=== PATIENT | female | born 1965 | race Caucasian/White ===

== ENCOUNTER → 2017-02-28 | Outpatient (REF) | payer BC, OTHER | LOC: M LAB REF 18:12 | DX: N39.0 Urinary tract infection, site not specified (principal) | CPT/HCPCS: 87186 ==

== ENCOUNTER → 2017-04-18 | Outpatient (CLI) | payer BC | LOC: M WHC 13:04 | DX: Z12.31 Encounter for screening mammogram for malignant neoplasm of breast (principal) | CPT/HCPCS: 77067 ==

== ENCOUNTER → 2018-09-03 | Outpatient (CLI) | payer BC ==
[~2018-09-03] MED LIST: ACET1TAB55 PO; AUGM875T28 PO; BACITAB PO; DOCU5LIQ PO; EFFE37.5 PO; FERR325T3 PO; FISH5CAP PO; IBUP80TA PO; MAPA500T17 PO; OXYC1TAB23 PO; VITA20008 PO
--- NOTE | 2018-09-03 16:36 | REPMRS ---
Patient History The patient states she had a clinical breast exam in 08/2018. No known family history of cancer. Took hormonal contraceptives for 10 years. 3D TOMOSYNTHESIS WAS PERFORMED. [facility] for breast cancer is 9.6%. Digital Woman Screen Mammo: September 03, 2018 - Exam #: [id number] Bilateral CC and MLO view(s) were taken. Technologist: Yaritza Mg, Technologist Prior study comparison: April 18, 2017, digital woman screen mammo performed at [facility]. February 07, 2016, digital woman screen mammo performed at [facility]. FINDINGS: The breast tissue is heterogeneously dense. This may lower the sensitivity of mammography. There has been no change in the appearance of the mammogram from the prior studies. There is a moderate amount of residual fibroglandular tissue which is fairly symmetric. There is no interval development of dominant mass, areas of architectural distortion, or clustered microcalcification typical of malignancy. Assessment: BI-RADS/ACR category 1 mammogram. Negative Mammogram. Recommendation Routine screening mammogram in 1 year (for women over age 40). This mammogram was interpreted with the aid of an FDA-approved computer-aided dectection system. Electronically Signed By: Francisco Rodríguez MD 09/03/18 [id number]
== END ==
LOC: M WHC 14:37
PROVIDERS: ATTEND Nurse Practitioner Family
DX: Z12.31 Encounter for screening mammogram for malignant neoplasm of breast (principal)

== ENCOUNTER → 2019-09-07 | Outpatient (CLI) | payer BC ==
--- NOTE | 2019-09-07 16:59 | REPMRS ---
Patient History The patient states she had a clinical breast exam in August 2019. No known family history of cancer. Took hormonal contraceptives for 10 years. 3D TOMOSYNTHESIS WAS PERFORMED. [facility] for [facility] 9.4%. BLAIR Su. Digital Woman Screen Mammo: September 07, 2019 - Exam #: [id number] Bilateral CC and MLO view(s) were taken. Technologist: Key Herrera, Technologist Prior study comparison: September 03, 2018, bilateral digital woman screen mammo performed at [facility]. April 18, 2017, digital woman screen mammo performed at [facility]. FINDINGS: The breast tissue is heterogeneously dense. This may lower the sensitivity of mammography. There has been no change in the appearance of the mammogram from the prior studies. There is a moderate amount of residual fibroglandular tissue which is fairly symmetric. There is no interval development of dominant mass, areas of architectural distortion, or clustered microcalcification typical of malignancy. Assessment: BI-RADS/ACR category 1 mammogram. Negative Mammogram. Recommendation Routine screening mammogram in 1 year (for women over age 40). This mammogram was interpreted with the aid of an FDA-approved computer-aided dectection system. Electronically Signed By: Francisco Rodríguez MD 09/07/19 [id number]
== END ==
LOC: M WHC 14:26
PROVIDERS: ATTEND Nurse Practitioner Family
DX: Z12.31 Encounter for screening mammogram for malignant neoplasm of breast (principal)

== ENCOUNTER → 2020-10-10 | Outpatient (CLI) | payer BC ==
--- NOTE | 2020-10-10 15:47 | REP ---
INDICATION: CRISTO SCR MAMMO Z12.31. COMPARISON: Multiple TECHNIQUE: Digital screening mammography was carried out bilaterally in the CC and MLO projections using both 2D and 3D modalities and compared to the prior exams. By history, the patient has no complaints of a palpable breast abnormality or other significant breast complaints. FINDINGS: The breasts are unchanged in size and shape. Once again, dense heterogenous somewhat nodular fibroglandular elements are seen bilaterally in a stable appearing pattern but to such a degree that the sensitivity of the mammogram in detecting cancer is decreased. There are no luke soft tissue densities or spiculated masses. There is no internal architectural distortion. There are no suspicious calcifications. There is no skin thickening or nipple retraction. The Volpara volumetric breast density pattern is C. IMPRESSION: BIRADS/ACR category 1 negative mammogram. Due to the patient's breast density score of C bilateral whole breast screening ultrasonography and or bilateral breast MRI is warranted. This patient's Tyrer-Cuzick lifetime breast cancer risk assessment score is unknown%. This mammogram was interpreted with the aid of an FDA-approved computer-aided detection system. The patient states she had a clinical breast exam in unknown. The patient letter being requested is M1. RECOMMENDATION: Repeat screening mammography recommended 1 year (for women over 40). <Electronically signed by Vamsi Weber > 10/10/20 [id number]
== END ==
LOC: M WHC 14:38
PROVIDERS: ATTEND Nurse Practitioner Women's Health
DX: Z12.31 Encounter for screening mammogram for malignant neoplasm of breast (principal)

== ENCOUNTER → 2020-12-23 | Outpatient (CLI) | payer BC, OTHER | LOC: M LABSMTC 11:13 | PROVIDERS: ATTEND Anesthesiology | DX: Z01.812 Encounter for preprocedural laboratory examination (principal); Z20.822 Contact with and (suspected) exposure to COVID-19 ==

== ENCOUNTER 2020-12-28 10:10 | Day surgery (SDC) | payer BC, OTHER ==
[~2020-12-28] VITALS: Ht 172.7 cm; Wt 65.0 kg
[~2020-12-28 10:10] MED LIST changes: +LIDOCAINE 2% 100MG/5ML SDV (FOR ANES.) As Ordered ONE; +NS 1,000 ML IV ONE; +propofoL 200 MG/20 ML VIAL As Ordered ONE
--- OUTSIDE RECORDS SUMMARY | 2020-12-28 10:13 | CCD | Continuity of Care Document ---
Author Author Brittney [facility] Organization Unknown Address [address] [place] [address], [address] [place] [address] Phone [phone] Care Team Providers Care Survey Field Technician Name Role Phone Elvia Cade AUTM Abdoulaye Kothari M.D. AUTM [phone] Problems Active Problems Provider Date Aftercare Following The Surgery Of Genitourinary System,NEC Ning Orellana MD Onset: 06/08/2012 Intramural leiomyoma of uterus Ning Orellana MD Onset: Social History Type Date Description Comments Sex Unknown ETOH Use 2 A Day Tobacco Use Start: Unknown End: Unknown Patient is a former smoker Allergies and adverse reactions Description No Known Drug Allergies Medications Active Medications SIG Qnty Indications Ordering Provide r Date Clenpiq 10-3.5-12mg-GM -GM/160ML S olution take as directed per doctor's bowel prep instructions. 320ml Z12.1 1 Cleve Larios MD 11/21/[address] take 4 tabs by mouth prior to procedure per instructions. 4tabs Z12.11 Cleve Larios MD 11/21/2020 Venlafaxine HCL 37.5mg Tablets Daily Unknown Fish Oil 1000mg Capsules 3 times per week Unknown Vitamin D-3 125mcg (5000 Ut) Table ts 3 times per week. Unknown Immunizations Description No Information Available Vital Signs Date Vital Result Comment 11/21/2020 1:19pm BP Systolic 118 mmHg BP Diastolic 84 mmHg Height 68 inches 5'8" Weight 147.00 lb BMI (Body Mass Index) 22.3 kg/m2 [place] Body Weight 140 lb Weight 66.679 kg BSA (Body Surface Area) 1.79 m2 06/08/2012 11:32am BP Systolic 118 mmHg BP Diastolic 76 mmHg Heart Rate 84 /min O2 % BldC Oximetry 97 % Respiratory Rate 16 /min Body Temperature 98.3 F Height 68 inches 5'8" Weight 136.00 lb BMI (Body Mass Index) 20.7 kg/m2 [place] Body Weight 140 lb Weight 61.690 kg BSA (Body Surface Area) 1.73 m2 Results Description No Information Available Procedures Date Code Description Status 11/21/2020 72562 Office/Outpatient New Moderate M DM 45-59 Minutes Completed Medical Devices Description No Information Available Encounters Type Date Location Provider Dx Diagnosis Office Visit 11/21/2020 1:00p [facility] ctice ELOY Carranza Z12.11 Encounter for screening for malignant neoplasm of colon K21.9 Gastro-esophageal reflux dis ease without esophagitis Assessments Date Code Description Provider 11/21/2020 Z12.11 Encounter for screening for haley gnant neoplasm of colon ELOY Carranza 11/21/2020 K21.9 Gastro-esophageal reflux disease without esophagitis ELOY Carranza Plan of Treatment 11/21/2020 - ELOY Carranza* Z12.11 Encounter for screening for malignant neoplasm of colon * K21.9 Gastro-esophageal reflux disease without esophagitis * * New Medication:* Clenpiq 10-3.5-12 mg-GM -GM/160ML * Dulcolax 5 mg * New Orders:* Colonoscopy, Ordered: 11/21/20 * Comments:* Will arrange for upper endoscopy and colonoscopy. Reviewed risks and benefits of the procedures, as well as other options, with the patient. Prep for this procedure was discussed with patient, including risks and side effects associated with the prep. Patient verbalized understanding of all of the above and is in agreement to proceed. Patient will seek medical attention for any acute changes. Will monitor. * Follow up:* As scheduled, sooner if needed. Functional Status Description No Information Available Mental Status Description No Information Available Referrals Refer to Reason for Referral Status Appt Date Celestino Humphreys M.D. COLO SCREEN Scheduled 11/21 [facility] [address], [address] [place] [address] [phone]
--- OUTSIDE RECORDS SUMMARY | 2020-12-28 10:13 | CCD | Continuity of Care Document ---
Author Author Brittney [facility] Organization Unknown Address [address] [place] [address], [address] [place] [address] Phone [phone] Care Team Providers Care Director Of Retail Name Role Phone Elvia Cade AUTM Abdoulaye Kothari M.D. AUTM [phone] Problems Active Problems Provider Date Aftercare Following The Surgery Of Genitourinary System,NEC Ning Orellana MD Onset: 06/08/2012 Intramural leiomyoma of uterus Ning Orellana MD Onset: Social History Type Date Description Comments Sex Unknown ETOH Use 2 A Day Tobacco Use Start: Unknown End: Unknown Patient is a former smoker Allergies, Adverse Reactions, Alerts Description No Known Drug Allergies Medications Active [...] m2 Results Description No Information Available Procedures Description No Information Available Medical Devices Description No Information Available Encounters Description No Information Available Assessments Date Code Description Provider 11/21/2020 Z12.11 [...] Celestino Humphreys M.D. COLO SCREEN Scheduled 11/21 [facility] [address], [address] [place] [address] [phone]
--- OUTSIDE RECORDS SUMMARY | 2020-12-28 10:14 | CCD ---
Author Author [facility] Organization [facility] Address Unknown Phone Unavailable Care Team Providers Care Resawyer Name Role Phone Alyssia Elvia Unavailable PROBLEMS Type Condition ICD9-CM Code INT17-SU Code Onset Dates Condition S tatus W/U Status Risk SNOMED Code Notes Problem Dyspareunia in female N94.10 Active confirmed 68946213 Problem Acquired absence of both cervix and uterus Z90.710 Active confirmed 528045902 Problem Symptomatic menopausal or female climacteric states N95.1 Active confirmed [id number] ALLERGIES No Known Allergies ENCOUNTERS from 1965 to 2020-10-11 Encounter Location Date Provider Diagnosis [facility] [address] [phone] [place] [address] 17 Sep, 2020 Elvia Cade Routine gynecologica l examination Z01.419 ; Hx of hysterectomy for benign disease Z90.710 ; Breast cancer screening by mammogram Z12.31 ; Menopausal and female climacteric states N95.1 ; Encounter for screening for malignant neoplasm of colon Z12.11 and Encounter for screening for malignant neoplasm of rectum Z12.12 IMMUNIZATIONS No Information SOCIAL HISTORY Sex Assigned At : Social History Observation Description Sex Assigned At Unknown Education: Question Answer Notes Level of Education: High School Rastafarian: Question Answer Notes Rastafarian 34 None Alcohol Screening: Question Answer Notes Did you have a drink containing alcohol in the past year? Ye s Points 2 Interpretation Negative How often did you have six or more drinks on one occas ion in the past year? Never (0 points) How many drinks did you have on a typica l day when you were drinking in the past year? 1 or 2 (0 points) How often did you have a drink containing alcohol in t he past year? Two to four times a month (2 points) REASON FOR REFERRAL from 1965 to 2020-10-11 Reason 55 year old female desires s creening colonoscopy, please evaluate and manage as necessary, thank you Diagnosis 1 Encounter for screening for malignant neoplasm of colon (Z12.11) Referral Organization [facility] Referring Provider First Name Elvia Referring Provider Last Name Alyssia Referring Provider Specialty OB - Gynecology Referred Provider Paulo Larios David Referral Priority Routine Clinical Notes Elvia Cade NP 4:57:55 PM > referral sent VITAL SIGNS Weight 146.8 lbs Sep, Height 68 in Sep, BMI 22.32 kg/m2 Sep, Blood pressure systolic 118 mm Hg Sep, Blood pressure diastolic 84 mm Hg Sep, MEDICATIONS Medication SIG (Take, Route, Frequency, Duration) Notes Start Da te End Date Status Vitamin D 2000 UNIT 1 tablet Orally Once a day Active Fish Oil 1000 MG 1 capsule Orally Once a day Active Ibuprofen 200 mg 1 tablet Orally Every 4 hours as needed MDD 2400 mg Active Effexor XR 37.5 MG 1 capsule with food Orally daily for 90 days Active PROCEDURES No Information RESULTS Component Value Reference Range WWBC DIGITAL / RAPHAEL BILATERAL MAMMO SCRE ENING (Ultrasound if indicated) Reviewed date:10/10/2020 17:33:12 Interpretation:Negative Performing Lab:[facility],[address]], ,[place] [id number] REASON FOR VISIT ANNUAL/MAMMO MEDICAL (GENERAL) HISTORY Type Description Date Medical History GERD Medical History Lower abdominal pain - resolved with hys terectomy Medical History vertigo past Surgical History ectopic Surgical History lasik bilaterally Surgical History urethral diverticulum Dr Fritz [facility]rology 2009 Surgical History hysterectomy lap assisted, s till has ovaries/tubes for 7.5 cm fibroid 04/2012 Goals Section No Information Health Concerns No Information MEDICAL EQUIPMENT No Information MENTAL STATUS No Information FUNCTIONAL STATUS No Information ASSESSMENTS Encounter Date Diagnosis Assessment Notes Treatment Notes Treatm ent Clinical Notes Sep, Routine gynecological examination (ICD-10 - Z01. 419) Sep, Hx of hysterectomy for benign disease (ICD-10 - Z90.710) Sep, Breast cancer screening by mammogram (ICD-10 - Z 12.31) Reviewed screening intervals with mammography, recommend annual screening until age 75. Reviewed breast awareness, know what is normal for you so that you can detect any changes in the breasts, check breasts regularly, in a routine that you are comfortable with. Sep, Menopausal and female climacteric states (ICD-10 - N95.1) rx sent Sep, Encounter for screening for malignant neoplasm of colon (ICD-10 - Z12.11) Sep, Encounter for screening for malignant neoplasm of rectum (ICD-10 - Z12.12) PLAN OF TREATMENT Medication Medication Name Sig Start Date Stop Date Effexor XR 37.5 MG 1 capsule with food Orally daily for 90 days Treatment Notes Assessment Notes Clinical Notes Breast cancer screening by mammogram Rev iewed screening intervals with mammography, recommend annual screening until age 75. Reviewed breast awareness, know what is normal for you so that you can detect any changes in the breasts, check breasts regularly, in a routine that you are comfortable with. Menopausal and female climacteric states rx sent Referrals Referral Date Details 55 year old female desires s creening colonoscopy, please evaluate and manage as necessary, thank you, Cleve Larios Next Appt Details 1 Year Reason:annual/mammo Follow Up:1 Yearannual/mammo Insurance Providers Payer Name Payer Address Payer Phone Insured Name Patient Relati onship to Insured Coverage Start Date Coverage End Date [facility] [address] [facility] [id number] [place] [employer]
--- OUTSIDE RECORDS SUMMARY | 2020-12-28 10:14 | CCD ---
Author Author [facility] Organization [facility] Address Unknown Phone Unavailable Care Team Providers Care Pet Adoption Counselor Name Role Phone Charlebois, A Gretta RPA C Unavailable Unavailable Charlebois, A Gretta RPA C Unavailable Unavailable Charlebois, A Gretta RPA C Unavailable Unavailable Charlebois, A Gretta RPA C Unavailable Unavailable Charlebois, A Gretta RPA C Unavailable Unavailable Charlebois, A Gretta RPA C Unavailable Unavailable Charlebois, A Gretta RPA C Unavailable Unavailable Charlebois, A Gretta RPA C Unavailable Unavailable Charlebois, A Gretta RPA C Unavailable Unavailable Charlebois, A Gretta RPA C Unavailable Unavailable Charlebois, A Gretta RPA C Unavailable Unavailable Charlebois, A Gretta RPA C Unavailable Unavailable Charlebois, A Gretta RPA C Unavailable Unavailable Charlebois, A Gretta RPA C Unavailable Unavailable Charlebois, A Gretta RPA C Unavailable Unavailable Charlebois, A Gretta RPA C Unavailable Unavailable Charlebois, A Gretta RPA C Unavailable Unavailable Charlebois, A Gretta RPA C Unavailable Unavailable Charlebois, A Gretta RPA C Unavailable Unavailable Charlebois, A Gretta RPA C Unavailable Unavailable Charlebois, A Gretta RPA C Unavailable Unavailable Charlebois, A Gretta RPA C Unavailable Unavailable Charlebois, A Gretta RPA C Unavailable Unavailable Charlebois, A Gretta RPA C Unavailable Unavailable Charlebois, A Gretta RPA C Unavailable Unavailable Charlebois, A Gretta RPA C Unavailable Unavailable Charlebois, A Gretta RPA C Unavailable Unavailable Charlebois, A Gretta RPA C Unavailable Unavailable Charlebois, A Gretta RPA C Unavailable Unavailable Charlebois, A Gretta RPA C Unavailable Unavailable Charlebois, A Gretta RPA C Unavailable Unavailable Charlebois, A Gretta RPA C Unavailable Unavailable Charlebois, A Gretta RPA C Unavailable Unavailable Dotson, [place] Sabine Unavailable Unavailable Dotson, [place] Sabine Unavailable Unavailable Dotson, [place] Sabine Unavailable Unavailable Dotson, [place] Sabine Unavailable Unavailable Dotson, [place] Sabine Unavailable Unavailable Dotson, [place] Sabine Unavailable Unavailable Dotson, [place] Sabine Unavailable Unavailable Dotson, [place] Sabine Unavailable Unavailable Dotson, [place] Sabine Unavailable Unavailable Dotson, [place] Sabine Unavailable Unavailable Dotson, [place] Sabine Unavailable Unavailable Dotson, [place] Sabine Unavailable Unavailable Dotson, [place] Sabine Unavailable Unavailable Re-disclosure Warning The records that you are about to access may contain information from federally-assisted alcohol or drug abuse programs. If such information is present, then the following federally mandated warning applies: This information has been disclosed to you from records protected by federal confidentiality rules (42 CFR part 2). The federal rules prohibit you from making any further disclosure of this information unless further disclosure is expressly permitted by the written consent of the person to whom it pertains or as otherwise permitted by 42 CFR part 2. A general authorization for the release of medical or other information is NOT sufficient for this purpose. The Federal rules restrict any use of the information to criminally investigate or prosecute any alcohol or drug abuse patient.The records that you are about to access may contain highly sensitive health information, the redisclosure of which is protected by Article 27-F of the [facility] Public Health law. If you continue you may have access to information: Regarding HIV / AIDS; Provided by facilities licensed or operated by the [facility] Office of Mental Health; or Provided by the [facility] Office for People With Developmental Disabilities. If such information is present, then the following [facility] mandated warning applies: This information has been disclosed to you from confidential records which are protected by state law. State law prohibits you from making any further disclosure of this information without the specific written consent of the person to whom it pertains, or as otherwise permitted by law. Any unauthorized further disclosure in violation of state law may result in a fine or mcc sentence or both. A general authorization for the release of medical or other information is NOT sufficient authorization for further disc losure. Allergies and Adverse Reactions Type Description Substance Reaction Status Data Source(s ) Allergy to substance Allergy to substance Allergy to substance MAX ([facility]) Allergy to substance Allergy to substance Allergy to substance [place] ([facility]) Family History Family Member Name Family Member Gender Family Member Status Date o f Status Description Data Source(s) Unknown Unknown Problem MEDENT ([facility], [facility]) brother Encounters Encounter Providers Location Date Indications Data Source(s ) Outpatient Attender: Gretta Sparks/Elio/Talita chun/Ric 11/21/2020 01:00:00 PM EDT MEDENT ([facility] arlene, ) Outpatient [address] [facility] [address] 10/10/2020 12:00:00 AM EDT eCW1 ([facility]) SASHA AlanC: [address] [place] [address], Ph. Attender: Sabine Dotson [facility] Medical 05/24/2020 12:00:00 AM EDT MAX ([facility]) NETTA Alan: [address] [place] [address], Ph. Attender: Sabine Dotson [facility] Medical 04/26/2020 12:00:00 AM EST MAX ([facility]) SASHA AlanC: [address] [place] [address], Ph. Attender: Sabine HERNANDEZ - [facility] Medical 04/26/2020 12:00:00 AM EST MAX ([facility]) Unknown [address] [facility] [address] [address] 12/21/2019 12:00:00 AM EDT eCW1 ([facility]) Immunizations Vaccine Date Status Description Data Source(s) COVID-19, mRNA, LNP-S, PF, 100 mcg/0.5 mL dose 05/24/2020 01 :20:07 PM EDT completed .5 mL MAX ([facility]) COVID-19 VACCINE Moderna 05/24/2020 12:00:00 AM EDT completed [place] Vaccine Series Complete: YESThis Data wa s Submitted to [facility] Via [facility]. COVID-19, mRNA, LNP-S, PF, 100 mcg/0.5 mL dose 04/26/2020 02 :37:49 PM EST completed 10.5 mL MAX ([facility]) COVID-19, mRNA, LNP-S, PF, 100 mcg/0.5 mL dose 04/26/2020 02 :37:49 PM EST completed .5 mL MAX ([facility]) COVID-19 VACCINE Moderna 04/26/2020 12:00:00 AM EST completed [place] Vaccine Series Complete: NOThis Data was Submitted to [facility] Via [facility]. Medications Medication Brand Name Start Date Product Form Dose Route Admi nistrative Instructions Pharmacy Instructions Status Indications Reaction Description Data Source(s) Citric Acid 75 MG/ML / Magnesium Oxide 2 1.9 MG/ML / picosulfate sodium 0.0625 MG/ML Oral Solution [Clenpiq] 10 mg-3.5 gram -12 gram/160 mL SOD PICOSULF/MAG OX/CITRIC AC 11/22/2020 12:00:00 AM EDT solution 320 T LALI DIRECTED PER DOCTOR'S BOWEL PREP INSTRUCTIONS TAKE DIRECTED PER DOCTOR'S BOWEL PREP INSTRUCTIONS SOLD: 12/10/2020 [facility] Bisacodyl 5 MG Delayed Release Oral Tablet [Dulcolax] Dulcol ax 11/21/2020 12:00:00 AM EDT ORAL active M EDENT ([facility], ) Clenpiq Clenpiq 11/21/2020 12:00:00 AM EDT active MEDENT ([facility], ) 37.5 mg 10/11/2020 12:00:00 AM EDT capsule,extended releas e 24hr 90 TAKE ONE CAPSULE BY MOUTH EVERY DAY WITH FOOD TAKE ONE CAPSULE BY MOUTH EVERY DAY WITH FOOD SOLD: 10/21/2020 [facility] 37.5 mg 12/21/2019 12:00:00 AM EDT capsule,extended releas e 24hr 90 TAKE ONE CAPSULE BY MOUTH EVERY DAY WITH FOOD TAKE ONE CAPSULE BY MOUTH EVERY DAY WITH FOOD SOLD: 07/14/2020 [facility] 37.5 mg 12/21/2019 12:00:00 AM EDT capsule,extended releas e 24hr 90 TAKE ONE CAPSULE BY MOUTH EVERY DAY WITH FOOD TAKE ONE CAPSULE BY MOUTH EVERY DAY WITH FOOD SOLD: 03/31/2020 [facility] 37.5 mg 12/21/2019 12:00:00 AM EDT capsule,extended releas e 24hr 90 TAKE ONE CAPSULE BY MOUTH EVERY DAY WITH FOOD TAKE ONE CAPSULE BY MOUTH EVERY DAY WITH FOOD SOLD: 12/21/2019 [facility] 37.5 mg 10/06/2019 12:00:00 AM EDT capsule,extended releas e 24hr 30 TAKE ONE CAPSULE BY MOUTH EVERY DAY TAKE ONE CAPSULE BY MOUTH EVERY DAY SOLD: 11/15/2019 [facility] Insurance Providers Payer name Policy type / Coverage type Policy ID Covered republican ID Covered republican's relationship to cook Policy Cook Plan Information [facility] [id number] [facility] [id number] [facility] [id number] P [id number] ANSI-Commercial [id number] [facility] Commercial [id number] Family Dependent [id number] ANSI-Commercial [id number] [facility] Commercial [id number] Family Dependent [id number] [facility] Commercial [id number] Family Dependent [id number] [facility] [id number] [facility] [id number] [facility]-O/P [id number] 01 [id number] [facility] [id number] [facility] [id number] Problems, Conditions, and Diagnoses No Information Surgeries/Procedures Procedure Description Date Indications Data Source(s) OFFICE OUTPATIENT NEW 45 MINUTES 11/21/2020 12:00:00 A M EDT [facility] ([facility]) Results ID Date Data Source WWBC DIGITAL / RAPHAEL BILATERAL MAMMO SCREENING (Ultraso und if indicated) 10/10/2020 12:00:00 AM EDT [facility] ([facility]) Name Value Range Interpretation Code Description Data Silvia rce(s) Supporting Document(s) WWBC DIGITAL / RAPHAEL BILAT ERAL MAMMO SCREENING (Ultrasound if indicated) [facility] ([facility]) Procedure Social History No Information Vital Signs ID Date Data Source UNK Name Value Range Interpretation Code Description Data Source(s) Diastolic blood pressure 84 mm[Hg] 84 mm[Hg] [facility] ([facility]) Body height 68 [in_i] 68 [in_i] [facility] ([facility]) 5'8" Systolic blood pressure 118 mm[Hg] 118 mm[Hg] [facility] ([facility]) Body weight 147.00 [lb_av] 147.00 [lb_av] [facility] ([facility]) Body mass index (BMI) [Ratio] 22.3 kg/m2 22.3 k g/m2 [facility] ([facility]) Patten body weight 140 [lb_av] 140 [lb_av] [facility] ([facility]) Body weight 66.679 kg 66.679 kg [facility] ([facility], ) Body surface area Derived from formula 1.[address], ) Body weight 146.8 [lb_av] 146.8 [lb_av] eCW1 (formerly [facility]) Body height 68 [in_i] 68 [in_i] eCW1 ([facility]) Body mass index (BMI) [Ratio] 22.32 kg/m2 22.32 kg/m2 [facility] ([facility]) Systolic blood pressure 118 mm[Hg] 118 mm[Hg] e CW1 ([facility]) Diastolic blood pressure 84 mm[Hg] 84 mm[Hg] eCW1 ([facility])
--- OUTSIDE RECORDS SUMMARY | 2020-12-28 10:14 | CCD | Continuity of Care Document ---
Author Author Brittney [facility] Organization Unknown Address [address] [place] [address], [address] [place] [address] Phone [phone] Care Team Providers Care Director Of Reservations Name Role Phone Elvia Cade AUTM [phone] Abdoulaye Kothari M.D. AUTM [phone] Problems Active Problems Provider Date Aftercare Following [...] lb BMI (Body Mass Index) 22.3 kg/m2 [place] Body Weight 140 lb Weight 66.679 kg BSA (Body Surface Area) 1.79 m2 06/08/2012 11:32am BP Systolic 118 mmHg BP Diastolic 76 mmHg Heart Rate 84 /min O2 % BldC Oximetry 97 % Respiratory Rate 16 /min Body Temperature 98.3 F Height 68 inches 5'8" Weight 136.00 lb BMI (Body Mass Index) 20.7 kg/m2 [place] Body Weight 140 lb Weight 61.690 kg [...] Celestino Humphreys M.D. COLO SCREEN Scheduled 11/21 [facility] [address], [address] [place] [address] [phone]
--- OUTSIDE RECORDS SUMMARY | 2020-12-28 10:14 | CCD | Continuity of Care Document ---
Author Author Brittney [facility] Organization Unknown Address [address] [place] [address], [address] [place] [address] Phone [phone] Care Team Providers Care Open Hearth Laborer Name Role Phone Elvia Cade AUTM [phone] Abdoulaye Kothari M.D. AUTM [phone] Problems Active Problems Provider Date Aftercare Following [...] lb BMI (Body Mass Index) 22.3 kg/m2 [place] Body Weight 140 lb Weight 66.679 kg BSA (Body Surface Area) 1.79 m2 06/08/2012 11:32am BP Systolic 118 mmHg BP Diastolic 76 mmHg Heart Rate 84 /min O2 % BldC Oximetry 97 % Respiratory Rate 16 /min Body Temperature 98.3 F Height 68 inches 5'8" Weight 136.00 lb BMI (Body Mass Index) 20.7 kg/m2 [place] Body Weight 140 lb Weight 61.690 kg BSA (Body Surface Area) 1.73 m2 Results Description No Information Available Procedures Description No Information Available Medical Devices Description No Information Available Encounters Description No Information Available Assessments Date Code Description Provider 11/21/2020 Z12.11 Encounter for screening for haley gnant neoplasm of colon ELOY Carranza 11/21/2020 K21.9 Gastro-esophageal reflux disease without esophagitis EOLY Carranza Plan of Treatment 11/21/2020 - ELOY [...] Celestino Humphreys M.D. COLO SCREEN Scheduled 11/21 [facility] [address], [address] [place] [address] [phone]
--- NOTE | 2020-12-28 12:23 | ROOR ---
Patient Name: Brittney Garcia Procedure Date: 12/28/2020 11:44 AM Date of : 1965 Age: 55 Room: [facility] Gender: Female Note Status: Finalized Procedure: Upper GI endoscopy Indications: Heartburn, Suspected gastro-esophageal reflux disease Providers: Celestino Humphreys MD Referring MD: ELIGIO MALLORY MD Requesting Provider: Medicines: Monitored Anesthesia Care Complications: No immediate complications. Procedure: Pre-Anesthesia Assessment: - Prior to the procedure, a History and Physical was performed, and patient medications and allergies were reviewed. The patient is competent. The risks and benefits of the procedure and the sedation options and risks were discussed with the patient. All questions were answered and informed consent was obtained. Patient identification and proposed procedure were verified by the physician, the nurse and the anesthesiologist in the procedure room. Mental Status Examination: alert and oriented. Airway Examination: normal oropharyngeal airway and neck mobility. Respiratory Examination: clear to auscultation. CV Examination: normal. Prophylactic Antibiotics: The patient does not require prophylactic antibiotics. Prior Anticoagulants: The patient has taken no previous anticoagulant or antiplatelet agents. ASA Grade Assessment: II - A patient with mild systemic disease. After reviewing the risks and benefits, the patient was deemed in satisfactory condition to undergo the procedure. The anesthesia plan was to use monitored anesthesia care (MAC). Immediately prior to administration of medications, the patient was re-assessed for adequacy to receive sedatives. The heart rate, respiratory rate, oxygen saturations, blood pressure, adequacy of pulmonary ventilation, and response to care were monitored throughout the procedure. The physical status of the patient was re-assessed after the procedure. The Endoscope was introduced through the mouth, and advanced to the second part of duodenum. The upper GI endoscopy was accomplished without difficulty. The patient tolerated the procedure well. Findings: LA Grade A (one or more mucosal breaks less than 5 mm, not extending between tops of 2 mucosal folds) esophagitis with no bleeding was found in the distal esophagus. Biopsies were taken with a cold forceps for histology. Verification of patient identification for the specimen was done by the physician and nurse using the patient's name, date and medical record number. Estimated blood loss was minimal. Scattered mild inflammation characterized by erythema and granularity was found in the gastric antrum. Biopsies were taken with a cold forceps for Helicobacter pylori testing. The duodenal bulb and second portion of the duodenum were normal. Impression: - LA Grade A reflux esophagitis. Biopsied. - Gastritis. Biopsied. - Normal duodenal bulb and second portion of the duodenum. Recommendation: - Patient has a contact number available for emergencies. The signs and symptoms of potential delayed complications were discussed with the patient. Return to normal activities tomorrow. Written discharge instructions were provided to the patient. - High fiber diet. - Continue present medications. - Follow an antireflux regimen. - Await pathology results. - Telephone GI clinic for pathology results in 2 weeks. - Return to GI clinic if persistent symptoms or new symptoms. - Return to primary care physician. Procedure Code(s): --- Professional --- 27960, Esophagogastroduodenoscopy, flexible, transoral; with biopsy, single or multiple Diagnosis Code(s): --- Professional --- K21.0, Gastro-esophageal reflux disease with esophagitis K29.70, Gastritis, unspecified, without bleeding R12, Heartburn CPT copyright 2019 [employer]. All rights reserved. The codes documented in this report are preliminary and upon wire bound box machine helper review may be revised to meet current compliance requirements. Celestino Humphreys MD Celestino Humphreys MD 12/28/2020 12:23:16 PM Electronically signed by Celestino Humphreys MD Number of Addenda: 0 Note Initiated On: 12/28/2020 11:44 AM Estimated Blood Loss: Estimated blood loss was minimal.
--- NOTE | 2020-12-28 12:25 | ROOR ---
Patient Name: Brittney Garcia Procedure Date: 12/28/2020 11:44 AM Date of : 1965 Age: 55 Room: [facility] Gender: Female Note Status: Finalized Procedure: Colonoscopy Indications: Screening for colorectal malignant neoplasm Providers: Celestino Humphreys MD Referring MD: ELIGIO MALLORY MD Requesting Provider: Medicines: Monitored Anesthesia Care Complications: No immediate complications. Procedure: Pre-Anesthesia Assessment: - Prior to the procedure, a History and Physical was performed, and patient medications and allergies were reviewed. The patient is competent. The risks and benefits of the procedure and the sedation options and risks were discussed with the patient. All questions were answered and informed consent was obtained. Patient identification and proposed procedure were verified by the physician, the nurse and the anesthesiologist in the procedure room. Mental Status Examination: alert and oriented. Airway Examination: normal oropharyngeal airway and neck mobility. Respiratory Examination: clear to auscultation. CV Examination: normal. Prophylactic Antibiotics: The patient does not require prophylactic antibiotics. Prior Anticoagulants: The patient has taken no previous anticoagulant or antiplatelet agents. ASA Grade Assessment: II - A patient with mild systemic disease. After reviewing the risks and benefits, the patient was deemed in satisfactory condition to undergo the procedure. The anesthesia plan was to use monitored anesthesia care (MAC). Immediately prior to administration of medications, the patient was re-assessed for adequacy to receive sedatives. The heart rate, respiratory rate, oxygen saturations, blood pressure, adequacy of pulmonary ventilation, and response to care were monitored throughout the procedure. The physical status of the patient was re-assessed after the procedure. The Colonoscope was introduced through the anus and advanced to the terminal ileum, with identification of the appendiceal orifice and IC valve. The colonoscopy was performed without difficulty. The patient tolerated the procedure well. The quality of the bowel preparation was good. The terminal ileum, ileocecal valve, appendiceal orifice, and rectum were photographed. Scope insertion time was 2 minutes. Scope withdrawal time was 8 minutes. The total duration of the procedure was 12 minutes. Findings: The perianal and digital rectal examinations were normal. The terminal ileum appeared normal. Two sessile polyps were found in the rectum. The polyps were diminutive in size. These polyps were removed with a cold biopsy forceps. Resection and retrieval were complete. Verification of patient identification for the specimen was done by the physician and nurse using the patient's name, date and medical record number. Estimated blood loss was minimal. Non-bleeding external and internal hemorrhoids were found during retroflexion. The hemorrhoids were medium-sized. Impression: - The examined portion of the ileum was normal. - Two diminutive polyps in the rectum, removed with a cold biopsy forceps. Resected and retrieved. - Non-bleeding external and internal hemorrhoids. Recommendation: - Patient has a contact number available for emergencies. The signs and symptoms of potential delayed complications were discussed with the patient. Return to normal activities tomorrow. Written discharge instructions were provided to the patient. - High fiber diet. - Continue present medications. - Await pathology results. - Repeat colonoscopy in 10 years for surveillance based on pathology results. - Return to GI clinic if persistent symptoms or new symptoms. - Return to primary care physician. Procedure Code(s): --- Professional --- 88731, Colonoscopy, flexible; with biopsy, single or multiple Diagnosis Code(s): --- Professional --- Z12.11, Encounter for screening for malignant neoplasm of colon K64.8, Other hemorrhoids K62.1, Rectal polyp CPT copyright 2019 [employer]. All rights reserved. The codes documented in this report are preliminary and upon surveillance manager review may be revised to meet current compliance requirements. Celestino Humphreys MD Celestino Humphreys MD 12/28/2020 12:25:36 PM Electronically signed by Celestino Humphreys MD Number of Addenda: 0 Note Initiated On: 12/28/2020 11:44 AM Estimated Blood Loss: Estimated blood loss was minimal.
[2020-12-28 12:45] VITALS: BP 131/88
== END 2020-12-28 12:57 | disposition home or self-care (01) ==
LOC: M OPP 10:10
PROVIDERS: ATTEND Internal Medicine Gastroenterology
DX: Z12.11 Encounter for screening for malignant neoplasm of colon (principal); K63.5 Polyp of colon; K64.8 Other hemorrhoids; K21.00 Gastro-esophageal reflux disease with esophagitis, without bleeding; K29.70 Gastritis, unspecified, without bleeding; R12 Heartburn; Z79.899 Other long term (current) drug therapy

== ENCOUNTER → 2021-10-03 | Outpatient (CLI) | payer BC, OTHER ==
[~2021-10-03] MED LIST changes: -LIDOCAINE 2% 100MG/5ML SDV (FOR ANES.) As Ordered ONE; -NS 1,000 ML IV ONE; -propofoL 200 MG/20 ML VIAL As Ordered ONE
[2021-10-03 12:02] LABS: HEMATOCRIT 38.7 % (36.0-47.0); HEMOGLOBIN 13.4 g/dl (12.0-15.5); MEAN CORPUSCULAR HEMOGLOBIN 31.2 pg (27.0-33.0); MEAN CORPUSCULAR HGB CONC 34.6 g/dl (32.0-36.5); MEAN CORPUSCULAR VOLUME 90.2 fl (80.0-96.0); PLATELET COUNT, AUTOMATED 225 10^3/uL (150-450); RED BLOOD COUNT 4.29 10^6/uL (4.00-5.40); WHITE BLOOD COUNT 3.9 10^3/uL (4.0-10.0)
[2021-10-03 13:14] LABS: ALBUMIN 3.8 GM/DL (3.2-5.2); ALT/SGPT 32 U/L (12-78); BILIRUBIN,TOTAL 0.7 MG/DL (0.2-1.0); BLOOD UREA NITROGEN 10 MG/DL (7-18); CALCIUM LEVEL 9.1 MG/DL (8.5-10.1); CARBON DIOXIDE LEVEL 27 MEQ/L (21-32); CHLORIDE LEVEL 104 MEQ/L (98-107); CHOLESTEROL LEVEL 276 MG/DL (<200); CHOLESTEROL RISK RATIO 3.136 (<5); CREATININE FOR GFR 0.75 MG/DL (0.55-1.30); GLOMERULAR FILTRATION RATE > 60.0 (>51); GLUCOSE, FASTING 105 MG/DL (70-100); HDL CHOLESTEROL 88 MG/DL (>40); LDL CHOLESTEROL 152 MG/DL (<100); NON-HDL-C 188 MG/DL; POTASSIUM SERUM 4.1 MEQ/L (3.5-5.1); SODIUM LEVEL 137 MEQ/L (136-145); TOTAL PROTEIN 7.4 GM/DL (6.4-8.2); TRIGLYCERIDES LEVEL 179 MG/DL (<150)
[2021-10-03 13:35] LABS: TOTAL 25(OH) VITAMIN D 33.6 NG/ML (30.0-100.0)
[2021-10-03 17:01] LABS: HEMOGLOBIN A1c 5.2 %
== END ==
LOC: M RAD 10:27
PROVIDERS: ATTEND Family Medicine
DX: D64.9 Anemia, unspecified (principal); R53.83 Other fatigue; M54.30 Sciatica, unspecified side; E03.9 Hypothyroidism, unspecified; R94.31 Abnormal electrocardiogram [ECG] [EKG]

== ENCOUNTER → 2022-02-20 | Outpatient (CLI) | payer BC, OTHER | LOC: M WHC 10:10 | PROVIDERS: ATTEND Nurse Practitioner Family | DX: Z12.31 Encounter for screening mammogram for malignant neoplasm of breast (principal) ==

== ENCOUNTER → 2022-07-30 | Outpatient (CLI) | payer BC, OTHER ==
[2022-07-30 09:32] LABS: HEMATOCRIT 39.2 % (36.0-47.0); HEMOGLOBIN 13.3 g/dl (12.0-15.5); MEAN CORPUSCULAR HEMOGLOBIN 30.6 pg (27.0-33.0); MEAN CORPUSCULAR HGB CONC 33.9 g/dl (32.0-36.5); MEAN CORPUSCULAR VOLUME 90.3 fl (80.0-96.0); PLATELET COUNT, AUTOMATED 219 10^3/uL (150-450); RED BLOOD COUNT 4.34 10^6/uL (4.00-5.40)
[2022-07-30 09:58] LABS: ALBUMIN 3.9 G/DL (3.2-5.2); ALKALINE PHOSPHATASE 77 U/L (46-116); ALT/SGPT 18 U/L (7.0-40); AST/SGOT 16 U/L (<34); BILIRUBIN,TOTAL 0.7 MG/DL (0.3-1.2); BLOOD UREA NITROGEN 14 MG/DL (9-23); CALCIUM LEVEL 9.1 MG/DL (8.5-10.1); CARBON DIOXIDE LEVEL 29 MMOL/L (20-31); CHLORIDE LEVEL 105 MMOL/L (98-107); CHOLESTEROL LEVEL 252 MG/DL (<200); CHOLESTEROL RISK RATIO 2.87 (<5); CREATININE FOR GFR 0.81 MG/DL (0.55-1.30); GLOMERULAR FILTRATION RATE > 60.0 (>51); GLUCOSE, FASTING 107 MG/DL (60-100); HDL CHOLESTEROL 87.6 MG/DL (>40); LDL CHOLESTEROL 129.4 MG/DL (<100); NON-HDL-C 164.4 MG/DL; POTASSIUM SERUM 4.1 MMOL/L (3.5-5.1); SODIUM LEVEL 137 MMOL/L (136-145); TOTAL PROTEIN 6.9 G/DL (5.7-8.2); TRIGLYCERIDES LEVEL 175 MG/DL (<150)
[2022-07-30 09:59] LABS: THYROID STIMULATING HORMONE 2.163 uIU/ML (0.55-4.78); THYROXINE (T4) 7.3 UG/DL (4.5-10.9); TOTAL T3 92.5 NG/DL (60.0-181.0)
[2022-07-30 10:17] LABS: HEMOGLOBIN A1c 5.2 % (4.0-6.0)
== END ==
LOC: M LAB 08:52
PROVIDERS: ATTEND Family Medicine
DX: D64.9 Anemia, unspecified (principal); R53.83 Other fatigue; E03.9 Hypothyroidism, unspecified

== ENCOUNTER → 2022-08-21 | Outpatient (CLI) | payer BC, OTHER ==
[~2022-08-21] MED LIST changes: +APPL300T4 PO; +ERGO500029; +OMEP-173; +OXYC1TAB23; +TRIA37.5
== END ==
LOC: M CARPUL 13:05
PROVIDERS: ATTEND Podiatrist
DX: M20.12 Hallux valgus (acquired), left foot (principal); M79.672 Pain in left foot

== ENCOUNTER 2022-08-30 06:03 | Day surgery (SDC) | payer BC, OTHER ==
[~2022-08-30] VITALS: Ht 172.7 cm; Wt 67.6 kg
[2022-08-30] MEDS ORDERED: ceFAZolin SOD 2 GM in IV 1 EA IV ONE (06:45)
[2022-08-30] MEDS ORDERED: LR 1,000 ML IV SCH (06:45)
[2022-08-30] MEDS ORDERED: LIDOCAINE 2% 100MG/5ML SDV (FOR ANES.) As Ordered ONE (06:52)
[2022-08-30] MEDS ORDERED: ONDANSETRON 4MG 2ML VIAL As Ordered ONE (06:52)
[2022-08-30] MEDS ORDERED: propofoL 200 MG/20 ML VIAL As Ordered ONE ×3 (06:52→08:55)
[2022-08-30] MEDS ORDERED: KETOROLAC 60MG 2ML VIAL As Ordered ONE (06:52)
[2022-08-30] MEDS ORDERED: fentaNYL 100 MCG/2 ML INJECTION As Ordered ONE (06:58)
[2022-08-30] MEDS ORDERED: MIDAZOLAM INJ 2MG/2ML VIAL As Ordered ONE (06:59)
[2022-08-30] MEDS ORDERED: LIDOCAINE 2% MDV 20ML VIAL As Ordered ONE (07:10)
[2022-08-30] MEDS ORDERED: ACETAMINOPHEN 1000MG 100ML IV BAG As Ordered ONE (07:48)
[2022-08-30 11:30] VITALS: BP 132/90; TEMP 97.4; O2SAT 95
== END 2022-08-30 11:30 | disposition home or self-care (01) ==
LOC: M SDC 06:03
PROVIDERS: ATTEND Podiatrist
DX: M20.12 Hallux valgus (acquired), left foot (principal); K21.9 Gastro-esophageal reflux disease without esophagitis; M54.9 Dorsalgia, unspecified; H81.10 Benign paroxysmal vertigo, unspecified ear; F41.9 Anxiety disorder, unspecified; Z79.899 Other long term (current) drug therapy
CPT/HCPCS: 28297; 73630; 76000; 88300; C1713; J0131; J0665; J0690; J1100; J1885; J2250; J2405; J3010

== ENCOUNTER → 2023-05-19 | Outpatient (CLI) | payer BC ==
[~2023-05-19] MED LIST changes: -EFFE37.5 PO; +EFFE37.52 PO; +PROBCAP14 PO
[2023-05-19 11:02] LABS: BASO # 0.1 10^3/uL (0.0-0.2); BASO % 1.1 % (0.0-1.0); EOS # 0.1 10^3/uL (0.0-0.5); EOS % 2.1 % (0.0-3.0); HEMOGLOBIN 13.7 g/dl (12.0-15.5); LYMPH # 1.6 10^3/uL (1.5-5.0); LYMPH % 33.5 % (24.0-44.0); MEAN CORPUSCULAR HEMOGLOBIN 31.3 pg (27.0-33.0); MEAN CORPUSCULAR HGB CONC 34.3 g/dl (32.0-36.5); MEAN CORPUSCULAR VOLUME 91.3 fl (80.0-96.0); MONO # 0.4 10^3/uL (0.0-0.8); MONO % 8.7 % (2.0-8.0); NEUTROPHILS # 2.6 10^3/uL (1.5-8.5); NEUTROPHILS % 54.4 % (36.0-66.0); PLATELET COUNT, AUTOMATED 258 10^3/uL (150-450); RED BLOOD COUNT 4.38 10^6/uL (4.00-5.40); WHITE BLOOD COUNT 4.7 10^3/uL (4.0-10.0)
[2023-05-19 11:25] LABS: BLOOD UREA NITROGEN 13 MG/DL (9-23); CALCIUM LEVEL 9.4 MG/DL (8.5-10.1); CARBON DIOXIDE LEVEL 28 MMOL/L (20-31); CHLORIDE LEVEL 107 MMOL/L (98-107); CREATININE FOR GFR 0.78 MG/DL (0.55-1.30); GLOMERULAR FILTRATION RATE > 60.0 (>51); GLUCOSE, FASTING 104 MG/DL (60-100); POTASSIUM SERUM 4.3 MMOL/L (3.5-5.1); SODIUM LEVEL 136 MMOL/L (136-145)
== END ==
LOC: M LAB 09:55
PROVIDERS: ATTEND Podiatrist
DX: M20.11 Hallux valgus (acquired), right foot (principal); M79.671 Pain in right foot

== ENCOUNTER 2023-05-23 06:21 | Day surgery (SDC) | payer BC ==
[~2023-05-23] VITALS: Ht 172.7 cm; Wt 68.5 kg
[2023-05-23] MEDS ORDERED: LR 1,000 ML IV SCH (06:45)
[2023-05-23] MEDS ORDERED: LIDOCAINE 2% 100MG/5ML SDV (FOR ANES.) As Ordered ONE (06:56)
[2023-05-23] MEDS ORDERED: propofoL 200 MG/20 ML VIAL As Ordered ONE (06:56)
[2023-05-23] MEDS ORDERED: KETOROLAC 60MG 2ML VIAL As Ordered ONE (06:56)
[2023-05-23] MEDS ORDERED: ONDANSETRON 4MG 2ML VIAL As Ordered ONE (06:56)
[2023-05-23] MEDS ORDERED: ACETAMINOPHEN 1000MG 100ML IV BAG As Ordered ONE (06:58)
[2023-05-23] MEDS ORDERED: fentaNYL 100 MCG/2 ML INJECTION As Ordered ONE (07:01)
[2023-05-23] MEDS ORDERED: MIDAZOLAM INJ 2MG/2ML VIAL As Ordered ONE (07:01)
[2023-05-23] MEDS: ceFAZolin SOD 2 GM in IV 1 EA IV ONE (07:40)
[2023-05-23] MEDS: GENTAMICIN SULF 80MG/2ML VIAL As Ordered ONE (08:22)
[2023-05-23] MEDS: LIDOCAINE 2% MDV 20ML VIAL As Ordered ONE (08:24)
[2023-05-23 10:18] VITALS: BP 121/74; TEMP 97.2; O2SAT 96
== END 2023-05-23 10:34 | disposition home or self-care (01) ==
LOC: M SDC 06:21
PROVIDERS: ATTEND Podiatrist
DX: M20.11 Hallux valgus (acquired), right foot (principal); Z90.711 Acquired absence of uterus with remaining cervical stump
CPT/HCPCS: 28297; 73630; 76000; 88300; C1713; J0131; J0665; J0690; J1100; J1580; J1885; J2250; J2405; J3010

== ENCOUNTER → 2023-06-11 | Outpatient (CLI) | payer BC | LOC: M WHC 14:40 | PROVIDERS: ATTEND Nurse Practitioner Family | DX: Z12.31 Encounter for screening mammogram for malignant neoplasm of breast (principal) ==

== ENCOUNTER → 2024-12-24 | Outpatient (REF) | payer BC | LOC: M SFHCPLAZ 13:25 | PROVIDERS: ATTEND Family Medicine | DX: Z00.00 Encounter for general adult medical examination without abnormal findings (principal) ==

== ENCOUNTER → 2025-01-04 | Outpatient (CLI) | payer BC ==
[2025-01-04 13:25] LABS: PLATELET COUNT, AUTOMATED 263 10^3/uL (150-450)
[2025-01-04 13:56] LABS: ALT/SGPT 27.0 U/L (7.0-40); AST/SGOT 23.0 U/L (<34); CALCIUM LEVEL 9.6 MG/DL (8.5-10.1); CARBON DIOXIDE LEVEL 28.0 MMOL/L (20-31); CHLORIDE LEVEL 104.0 MMOL/L (98-107); CHOLESTEROL LEVEL 274.0 MG/DL (<200); CHOLESTEROL RISK RATIO 3.88 (<5); CREATININE FOR GFR 0.82 MG/DL (0.55-1.30); GLOMERULAR FILTRATION RATE 82.9 (>51); LDL CHOLESTEROL 161.9 MG/DL (<100); NON-HDL-C 203.5 MG/DL; POTASSIUM SERUM 4.2 MMOL/L (3.5-5.1); SODIUM LEVEL 142.0 MMOL/L (136-145); TRIGLYCERIDES LEVEL 208.0 MG/DL (<150)
[2025-01-04 13:57] LABS: FREE T4 1.12 NG/DL (0.89-1.76)
[2025-01-04 14:18] LABS: ESTIMATED AVERAGE GLUCOSE 111.0 MG/DL (60-110)
== END ==
LOC: M PLALAB 09:37
PROVIDERS: ATTEND Family Medicine
DX: Z00.00 Encounter for general adult medical examination without abnormal findings (principal)